=== PATIENT | female | born 1980 | race Caucasian/White ===

== ENCOUNTER 2019-04-18 07:12 | Emergency (ER) | payer OTHER ==
[~2019-04-18] VITALS: Ht 170.2 cm; Wt 90.5 kg
[2019-04-18 07:24] VITALS: TEMP 99
[2019-04-18 07:45] LABS: BASO # 0.1 (0.0-0.2); BASO % 1.6 % (0.0-2.0); GRAN # 4.4 (1.4-6.5); GRAN % 76.8 % (42.2-75.2); HEMATOCRIT 43.3 % (37.0-47.0); LYMPH # 0.7 (1.2-3.4); LYMPH % 12.1 % (20.0-51.0); MEAN CELL VOLUME 101 fl (80.0-100.0); MEAN CORPUSCULAR HEMOGLOBIN 35 pg (27.0-31.0); MEAN CORPUSCULAR HGB CONC 35 g/dl (33.0-37.0); MEAN PLATELET VOLUME 9.9 fl (7.4-10.4); MONO # 0.5 (0.1-0.6); MONO % 9.2 % (1.7-9.3); PLATELET COUNT 128 K/mm3 (130-400); RED BLOOD COUNT 4.28 M/mm3 (4.10-5.30)
[2019-04-18 08:31] LABS: ALANINE AMINOTRANSFERASE 77 U/L (9-52); ALBUMIN 4.8 gm/dL (3.5-5.0); ALKALINE PHOSPHATASE 92 U/L (50-136); ANION GAP 16 mmol/L (7-16); AST,SGOT 198 U/L (15-37); BILIRUBIN,TOTAL 2.1 mg/dL (0.0-1.0); BLOOD UREA NITROGEN 6 mg/dL (7-17); CALCIUM 9.8 mg/dL (8.4-10.2); CARBON DIOXIDE 25 mmol/L (22-30); CHLORIDE 100 mmol/L (98-107); GLUCOSE 154 mg/dL (74-106); LIPASE 212 U/L (23-300); SODIUM 141 mmol/L (137-145); TOTAL PROTEIN 8.3 gm/dL (6.4-8.2)
[2019-04-18 08:35] LABS: ALCOHOL(ethanol),MEDICAL < 10 mg/dL; C-REACTIVE PROTEIN < 0.5 mg/dL (0.0-0.9); MAGNESIUM 0.9 mg/dL (1.6-2.3); POTASSIUM 2.9 mmol/L (3.4-5.0)
[2019-04-18] MEDS ORDERED: NEURONTIN300 MG/CAP PO (09:36)
[2019-04-18] MEDS ORDERED: PHENERGAN 25 TA25 MG PO (09:36)
[2019-04-18] MEDS ORDERED: LIBRIUM 25M25 MG/CAP PO ×2 (09:36→09:38)
[2019-04-18 11:56] VITALS: BP 121/84; PULSE 101
== END 2019-04-18 12:00 | disposition home or self-care (01) ==
LOC: COL.ER 07:12
PROVIDERS: Emergency Medicine
DX: F10.239 Alcohol dependence with withdrawal, unspecified (principal)
CPT/HCPCS: J2060; J2550; J3475; J3480; J7030